=== PATIENT | female | born 1985 | race Caucasian/White ===

== ENCOUNTER 2023-09-20 19:47 | Emergency (ER) | payer OTHER, SELFPAY ==
--- NOTE | ~2023-09-20 | XR_ITS ---
EXAMINATION: XR SHOULDER, LEFT CLINICAL INFORMATION: Pain, injury. COMPARISON: None available. TECHNIQUE: Two views of the left shoulder. FINDINGS: The bones and soft tissues are normal. No fracture. Glenohumeral and acromioclavicular alignment is anatomic with normal joint space. No abnormal soft tissue calcifications. XR/XR shoulder LT min 2V IMPRESSION: Normal left shoulder.
--- NOTE | ~2023-09-20 | XR_ITS ---
EXAMINATION: XR ELBOW, LEFT CLINICAL INFORMATION: Pain, injury. COMPARISON: None available. TECHNIQUE: AP, lateral, and oblique views of the left elbow. FINDINGS: The bones and soft tissues are normal. No fracture or joint effusion. Alignment is anatomic. Joint spaces are maintained. XR/XR elbow LT min 3V IMPRESSION: Normal left elbow.
[2023-09-20 20:30] VITALS: BP 119/67; PULSE 73; RESP 18; TEMP 36.6; O2SAT 99; BMI 25.9
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
--- OUTSIDE RECORDS SUMMARY | 2023-09-20 23:35 | XMS_ITS | Continuity of Care Document ---
Author Organization [facility] Address [address] [place] [address]- Care Team Providers Care Stacker Straightener Name Role Phone Dayna Mustafa Primary Care Physician Encounter [facility] Date(s): 12/04/19 - 12/11/19 [facility] [address] [place] [address]- [facility] Attending Physician: Martin Drake MD Referring Physician: Dayna Mustafa Allergies, Adverse Reactions, Alerts Substance Reaction Severity Status NKA Active Vital Signs Most recent to oldest [Reference Range]: 1 Height 149 cm (12/04/19 6:24 PM) Weight 40.0 kg (12/04/19 6:24 PM) Oxygen Saturation [94-100 %] 100 % (12/04/19 6:24 PM) Pulse Rate [55-90 bpm] 65 bpm (12/04/19 6:24 PM) Body Mass Index [18.5-24.99] 18.02 *L* (12/04/19 6:24 PM) Blood Pressure [90-138/55-84 mm Hg] 106/ 76mm Hg (12/04/19 6:24 PM) Respiratory Rate [16-30 br/min] 17 br/mi n (12/04/19 6:24 PM) Temperature [96.8-100.4 DegF] 98.9 DegF (12/04/19 6:24 PM) Mode of Delivery (Oxygen) Room air (12/04/19 6:24 PM) Blood pressure sites Arm, right (12/04/19 6:24 PM) Temperature Route Temporal (12/04/19 6:24 PM) Dry Weight 40.0 kg (12/04/19 6:24 PM) Weight Obtained Via Standing scale (12/04/19 6:24 PM) Dry Weight Obtained Via Standing scale (12/04/19 6:24 PM)
--- OUTSIDE RECORDS SUMMARY | 2023-09-20 23:35 | XMS_ITS | Continuity of Care Document ---
Author Organization [facility] Address [address] [place] [address]- Care Team Providers Care Virtual Customer Assistant Name Role Phone Dayna Mustafa Primary Care Physician Encounter [facility] Date(s): 12/04/19 - 01/03/20 [facility] [address] [place] [address]- [facility] Attending Physician: Admtr, Ar8 Admitting Physician: Admtr, Ar8 Referring Physician: Admtr, Ar8 Allergies, Adverse Reactions, Alerts Substance Reaction Severity Status NKA Active
[2023-09-21] MEDS: Cyclobenzaprine HCl 5 MG TABLET PO (01:20)
[2023-09-21 01:24] VITALS: BP 124/76; PULSE 76; RESP 18; TEMP 36.6; O2SAT 99
== END 2023-09-21 01:25 | disposition home or self-care (01) ==
PROVIDERS: Emergency Provider Emergency Medicine
DX: S53.402A Unspecified sprain of left elbow, initial encounter (principal); S43.402A Unspecified sprain of left shoulder joint, initial encounter; M25.512 Pain in left shoulder; M25.522 Pain in left elbow; V19.9XXA Pedal cyclist (driver) (passenger) injured in unspecified traffic accident, initial encounter; Y93.9 Activity, unspecified; Y92.9 Unspecified place or not applicable; Y99.8 Other external cause status
CPT/HCPCS: 73030; 73080; 99283